=== PATIENT | female | born 1995 | race Caucasian/White ===

== ENCOUNTER 2023-01-09 13:00 | Emergency (ER) | payer BC, MEDICAID, OTHER ==
[2023-01-09] MEDS ORDERED: Sodium Chloride 0.9% 10 ML SDV FLUSH ONE (14:28)
[2023-01-09] MEDS ORDERED: Iopamidol 612 MG/ML 100 ML Bottle IV PRN (14:28)
[2023-01-09] MEDS ORDERED: Sodium Chloride 0.9% 100 ML IV SCH (14:30)
[2023-01-09 14:36] LABS: BASOPHILS PERCENT AUTO 0.4 % (0.1-1.3); EOSINOPHILS ABSOLUTE AUTO 0.03 K/uL (0.00-0.40); EOSINOPHILS PERCENT AUTO 0.6 % (0.0-5.4); HEMATOCRIT 38.6 % (34.3-46.0); HEMOGLOBIN 13.5 g/dL (11.2-15.5); LYMPHOCYTES ABSOLUTE AUTO 1.41 K/uL (0.8-3.3); LYMPHOCYTES PERCENT AUTO 30.3 % (11.4-47.7); MEAN CORPUSCULAR HEMOGLOBIN 33.8 pg (31.6-35.5); MEAN CORPUSCULAR VOLUME 96.7 fL (81.4-99.0); MONOCYTES ABSOLUTE AUTO 0.36 K/uL (0.20-0.90); MONOCYTES PERCENT AUTO 7.7 % (3.3-12.6); NEUTROPHILS ABSOLUTE AUTO 2.83 K/uL (1.0-7.6); PLATELET COUNT,PLT 194 K/uL (130-375); RED BLOOD CELL COUNT 3.99 M/uL (3.77-5.24); WHITE BLOOD CELL COUNT,WBC 4.7 K/uL (3.2-11.0)
[2023-01-09 14:37] LABS: CREATININE 0.9 mg/dL (0.5-1.0); EST CRCL DRUG DOSING (CG) 76.3 mL/min
[2023-01-09 14:38] LABS: BASOPHILS ABSOLUTE AUTO 0.02 K/uL (0.00-0.10)
[2023-01-09 14:43] LABS: CALCIUM IONIZED,ISTAT 1.28 mmol/L (1.12-1.32); HEMATOCRIT,ISTAT 39 % (36-48); POTASSIUM,ISTAT 3.4 mmol/L (3.5-4.9); SODIUM,ISTAT 141 mmol/L (140-148)
[2023-01-09 14:44] LABS: BASE EXCESS CAPILLARY,ISTAT 1 mmol/L; HCO3 CAPILLARY,ISTAT 26.3 mmol/L (23.0-28.0); PCO2 CAPILLARY,ISTAT 43.4 mmHg (41.0-51.0); PH CAPILLARY,ISTAT 7.39 (7.31-7.41); PO2 CAPILLARY,ISTAT 27 mmHg; TCO2 CAPILLARY,ISTAT 28 mmol/L (24-29)
[2023-01-09 15:36] VITALS: PULSE 65
[2023-01-09 16:32] VITALS: BP 113/75
== END 2023-01-09 17:00 | disposition home or self-care (01) ==
LOC: JP.ED 13:00
DX: R10.10 Upper abdominal pain, unspecified (principal); R11.10 Vomiting, unspecified; Z91.018 Allergy to other foods
CPT/HCPCS: 36415; 74177; 82330; 82565; 82803; 84132; 84295; 85014; 85025; 99284; J3490; Q9967

== ENCOUNTER 2023-01-27 09:30 | Emergency (ER) | payer MEDICAID, OTHER ==
[2023-01-27 10:50] VITALS: BP 120/83; PULSE 87
[2023-01-27] MEDS ORDERED: Ketorolac 30 MG/ML SDV IM ONE (10:52)
[2023-01-27] MEDS ORDERED: tiZANidine 2 MG Tab PO SCH (11:00)
== END 2023-01-27 13:01 | disposition home or self-care (01) ==
LOC: JP.ED 09:30
DX: M54.50 Low back pain, unspecified (principal); J45.909 Unspecified asthma, uncomplicated; Z91.018 Allergy to other foods
CPT/HCPCS: 96372; 99283; J1885